=== PATIENT | female | born 1980 | race Caucasian/White ===

== ENCOUNTER 2017-01-23 20:24 | Emergency (ER) | payer MEDICAID ==
[~2017-01-23] VITALS: Ht 160 cm; Wt 91.0 kg
[~2017-01-23 20:24] MED LIST: METH10CO PO
[2017-01-23 20:25] VITALS: BP 155/91; PULSE 77; RESP 16; TEMP 98; O2SAT 98
== END 2017-01-23 22:00 | disposition left against medical advice (07) ==
LOC: NETRI 20:24
DX: R42 Dizziness and giddiness (principal)
CPT/HCPCS: 99281